=== PATIENT | female | born 1990 | race Caucasian/White ===

== ENCOUNTER → 2016-07-15 | Day surgery (SDC) | payer OTHER ==
[~2016-07-15] VITALS: Ht 165.1 cm; Wt 75.9 kg
[~2016-07-15] MED LIST: AMPH20CA3 PO; ATROPINE SULFATE 0.1 MG/ML 5ML SYR IV PRN; ESCI1TAB10 PO; EpHEDrine SULFATE INJ 50 MG/ML AMP IV PRN; FENTANYL CITRATE INJ 50 MCG/1 ML 2 ML VIAL ONE; LIDOCAINE HCL 2% 2 ML VIAL (20MG/ML) ONE; LORA5TAB21; ONDANSETRON INJ 2 MG/ML 2 ML VIAL IV PRN; PRLSR20 PO; PROPOFOL IV EMULSION 10 MG/ML 20 ML VIAL IV ONE
[2016-07-15 10:16] VITALS: Ht 165.1 cm; Wt 75.9 kg
--- NOTE | 2016-07-15 11:08 | Endo History and Physical ---
History & Physical Date of Service: Jul 15, 2016. Chief Complaint: Reflux Referring Physician: Dr. Cheung History of Present Illness Patient with a 5 to 10 year history of abdominal pain and reflux symptoms. No history of dysphagia. Past Surgical History Hx Abdominal Surgery: Yes (appendectomy 2007) Hx Post-Op Nausea and Vomiting: Yes Hx Orthopedic: Yes (2 knee surgeries on right) Family History Esophogeal CA, Polyp, IBD Social History Smoking Status: Current Every Day Smoker Hx Substance Use: No Hx Alcohol Use: Yes (socially) Allergies Coded Allergies: Bacitracin (Unverified Adverse Reaction, Severe, hives, 07/15/16) Neomycin (Unverified Adverse Reaction, Severe, hives, 07/15/16) Polymyxin B (Unverified Adverse Reaction, Severe, hives, 07/15/16) Codeine (Unverified Adverse Reaction, Unknown, nausea, 07/15/16) Uncoded Allergies: TREE FRUITS (Adverse Reaction, Severe, lips swell, 07/15/16) Current Medications Reported Home Medications Medications Dose Route/Sig Max Daily Dose Days Date Category Claritin Reditabs (Loratadine) 5 Mg Tab DAILY 07/15/16 Reported Prilosec (Omeprazole) 20 Mg Capcr 20 Mg PO DAILY 07/15/16 Reported Lexapro (Escitalopram Oxalate) 20 Mg Tab 20 Mg PO DAILY 07/15/16 Reported Adderall Xr 20MG (Amphetamine-Dextroamphetamine 20MG) 1 Cap Cap 1 Cap PO DAILY 30 07/15/16 Reported Vital Signs Weight (Kilograms): 75.9 Height (Feet): 5 Height (Inches): 5 Date Time Temp Pulse Resp B/P Pulse Ox O2 Delivery O2 Flow Rate FiO2 07/15/16 10:34 36.7 85 16 113/66 97 Room Air Physical Exam General Appearance: no apparent distress Respiratory/Chest: Auscultation: breath sounds normal Cardiovascular: Heart Auscultation: RRR Abdomen: Inspection & Palpation: soft Assessment and Plan EGD today for evaluation of abdominal pain and HB symptoms. Risks include bleeding, infection, perforation, pain, and aspiration.
--- NOTE | 2016-07-15 11:25 | Discharge Instructions ---
Endoscopy Patient Instructions Date / Procedure(s) Performed Jul 15, 2016. EGD Allergy Information Coded Allergies: Bacitracin (Unverified Adverse Reaction, Severe, hives, 07/15/16) Neomycin (Unverified Adverse Reaction, Severe, hives, 07/15/16) Polymyxin B (Unverified Adverse Reaction, Severe, hives, 07/15/16) Codeine (Unverified Adverse Reaction, Unknown, nausea, 07/15/16) Uncoded Allergies: TREE FRUITS (Adverse Reaction, Severe, lips swell, 07/15/16) Discharge Date / Findings Jul 15, 2016. Mild gastritis Normal esophagus Normal duodenum Medication Instructions Reported Home Medications Medications Dose Route/Sig Max Daily Dose Days Date Category Claritin Reditabs (Loratadine) 5 Mg Tab DAILY 07/15/16 Reported Prilosec (Omeprazole) 20 Mg Capcr 20 Mg PO DAILY 07/15/16 Reported Lexapro (Escitalopram Oxalate) 20 Mg Tab 20 Mg PO DAILY 07/15/16 Reported Adderall Xr 20MG (Amphetamine-Dextroamphetamine 20MG) 1 Cap Cap 1 Cap PO DAILY 30 07/15/16 Reported Provider Instructions Activity Restrictions - No exercising or heavy lifting for 24 hours. - Do not drink alcohol the day of the procedure. - Do not drive a car or operate machinery until the day after the procedure. - Do not make any important decisions or sign important papers in 24 hours after the procedure. Following Day: - Return to full activity which may include returning to work/school. Diet Start your diet with liquids and light foods (jello, soup, juice, toast). Then eat your usual diet if not nauseated. Treatment For Common After Affects For mild abdominal pain, bloating, or excessive gas: - Rest - Eat lightly - Lie on right side Follow-Up Information Follow-up with Dr. Cheung as scheduled Symptoms likely related to Lexapro or Adderall. Anesthesia Information What You Should Know You have had a procedure that required some medicine to reduce anxiety and discomfort. This treatment is called moderate sedation. After receiving the treatment, you may be sleepy, but you will be able to breathe on your own. The effects of the treatment may last for several hours. Follow these instructions along with Activity/Diet recommendations noted above: * Do NOT do anything where dizziness or clumsiness would be dangerous. * Rest quietly at home today, then you can be up and about tomorrow. * Have a responsible person stay with you the rest of today. * You may have had an I.V. today. If so, you may take the dressing off later today. Recommendations Call your doctor if: * Trouble breathing * Continuous vomiting for more than 24 hours * Temperature above 101 degrees * Severe abdominal pain or bloating * Pain not relieved by pain medicine ordered * There is increased drainage or redness from any incision * A large amount of rectal bleeding greater than 2-3 tablespoons. (If you had a polyp/s removed or have hemorrhoids, a small amount of blood - from the rectum is to be expected.) * You have any unanswered questions or concerns. IN THE EVENT OF A SERIOUS EMERGENCY, GO TO THE NEAREST EMERGENCY ROOM Your discharge instructions were prepared by provider Chaka Garnica. Patient Instructions Signature Page Celeste Pressley Patient (or Guardian) Signature/Date: I have read and understand the instructions given to me by my caregivers. Caregiver/RN/Doctor Signature/Date: The above-named patient and/or guardian has received patient instructions on this date. + Original Patient Signature Page (only) stays with chart. Please make copy for patient.
--- NOTE | 2016-07-15 11:28 | GI REPORT ---
Procedure Date: 07/15/2016 11:08 AM Procedure: Upper GI endoscopy Indications: Epigastric abdominal pain, Heartburn Medicines: Monitored Anesthesia Care Complications: No immediate complications. Estimated blood loss: Minimal. Estimated Blood Loss: Estimated blood loss was minimal. Procedure: Pre-Anesthesia Assessment: - Prior to the procedure, a History and Physical was performed, and patient medications, allergies and sensitivities were reviewed. The patient's tolerance of previous anesthesia was reviewed. - The risks and benefits of the procedure and the sedation options and risks were discussed with the patient. All questions were answered and informed consent was obtained. - Patient identification and proposed procedure were verified prior to the procedure by the physician, the nurse and the rod buster. The procedure was verified in the procedure room. - Pre-procedure physical examination revealed no contraindications to sedation. - ASA Grade Assessment: II - A patient with mild systemic disease. - After reviewing the risks and benefits, the patient was deemed in satisfactory condition to undergo the procedure. - The anesthesia plan was to use monitored anesthesia care (MAC). - Immediately prior to administration of medications, the patient was re-assessed for adequacy to receive sedatives. - The heart rate, respiratory rate, oxygen saturations, blood pressure, adequacy of pulmonary ventilation, and response to care were monitored throughout the procedure. - The physical status of the patient was re-assessed after the procedure. After obtaining informed consent, the endoscope was passed under direct vision. Throughout the procedure, the patient's blood pressure, pulse, and oxygen saturations were monitored continuously. The On-site loaner was introduced through the mouth, and advanced to the third part of duodenum. The upper GI endoscopy was accomplished without difficulty. The patient tolerated the procedure well. Findings: The examined esophagus was normal. Biopsies were taken with a cold forceps for histology. Estimated blood loss was minimal. The Z-line was regular and was found 38 cm from the incisors. Diffuse mild inflammation characterized by congestion (edema), erythema and granularity was found in the entire examined stomach. Biopsies were taken with a cold forceps for histology. Estimated blood loss: Minimal. The examined duodenum was normal. Biopsies for histology were taken with a cold forceps for evaluation of celiac disease. Estimated blood loss was minimal. Impression: - Normal esophagus. Biopsied. - Z-line regular, 38 cm from the incisors. - Mild chronic gastritis. Biopsied. - Normal examined duodenum. Biopsied. Recommendation: - Discharge patient to home (ambulatory). - Advance diet as tolerated today. - Await pathology results. - Observe patient's clinical course following today's procedure with therapeutic intervention. - Symptoms likely related ot a medication (Effexor or Adderall) Chaka Garnica D.O. Chaka Garnica, 07/15/2016 11:27:51 AM This report has been signed electronically. Note Initiated On: 07/15/2016 11:08 AM I attest to the content of the Intraoperative Record and orders documented therein, exceptions below
[2016-07-15 11:32] VITALS: BP 93/42; PULSE 77; O2SAT 100
--- NOTE | 2016-07-15 12:27 | Anesthesiology Progress Note ---
Anesthesia Post Op Note Date & Time Jul 15, 2016 at 12:26 Vital Signs Pain Intensity: 0 Vital Signs Past 12 Hours Date Time Temp Pulse Resp B/P Pulse Ox O2 Delivery O2 Flow Rate FiO2 07/15/16 11:32 77 16 93/42 100 Room Air 07/15/16 11:22 76 16 96/42 98 Room Air 07/15/16 10:34 36.7 85 16 113/66 97 Room Air Notes Mental Status: alert / awake / arousable, participated in evaluation Pt Amnestic to Procedure: Yes Nausea / Vomiting: adequately controlled Pain: adequately controlled Airway Patency, RR, SpO2: stable & adequate BP & HR: stable & adequate Hydration State: stable & adequate Anesthetic Complications: no major complications apparent
== END | disposition home or self-care (01) ==
LOC: C.GI 10:16
PROVIDERS: ATTEND Internal Medicine Gastroenterology
DX: K29.70 Gastritis, unspecified, without bleeding (principal); Z90.49 Acquired absence of other specified parts of digestive tract; Z80.0 Family history of malignant neoplasm of digestive organs; Z98.890 Other specified postprocedural states; F17.210 Nicotine dependence, cigarettes, uncomplicated; Z83.79 Family history of other diseases of the digestive system; Z88.1 Allergy status to other antibiotic agents; Z88.5 Allergy status to narcotic agent